=== PATIENT | male | born 1965 | race Caucasian/White ===

== ENCOUNTER 2016-09-09 12:02 | Inpatient (IN) | payer BC, OTHER ==
--- NOTE | 2016-09-09 12:30 | HP ---
COWS - Scale Resting Pulse: 1= [place] 81-100 Sweatin= Chills/Flushing Restless Observation: 1= Difficult to Sit Still Pupil Size: 0= Normal to Room Light Bone or Joint Aches: 1= Mild Discomfort Runny Nose/ Eye Tearin= Runny Nose/Eyes GI Upset > 30mins: 1= Stomach Cramp Tremor Observation: 1= Tremor [place], Not Seen Yawning Observation: 1= 1-2x During Session Anxiety or Irritability: 1=Feels Anxious/Irritable Goose Flesh Skin: 0=Smooth Skin COWS Score: 10 CIWA Score - CIWA Score Nausea/Vomitin-Mild Nausea/No Vomiting Muscle Tremors: 3 Anxiety: 4-Mod. Anxious/Guarded Agitation: 1-Slight > Activity Paroxysmal Sweats: 1-Minimal Palms Moist Orientation: 1-Uncertain about Date Tacttile Disturbances: 1-Very Mild Itch/Numbness Auditory Disturbances: 1-Very Mild Visual Disturbances: 1-Very Mild Sensitivity Headache: 1-Very Mild CIWA-Ar Total Score: 15 Admission ROS S - HPI Chief Complaint: I want to stop using, I was doing good, then I relapsed. Allergies/Adverse Reactions: Allergies Allergy/AdvReac Type Severity Reaction Status Date / Time No Known Allergies Allergy Verified 09/09/16 12:24 History of Present Illness: 50 yo gentleman her for detox from heroin and alcohol - no seizures. Past history of methadone but stopped as scheduling problems with work - think he might do suboxone. Exam Limitations: Clinical Condition - Ebola screening Have you traveled outside of the country in the last 21 days: No Have you had contact with anyone from an Ebola affected area: No Do you have a fever: No - Review of Systems Constitutional: Loss of Appetite, Changes in sleep EENT: reports: No Symptoms Reported Respiratory: reports: No Symptoms reported Cardiac: reports: No Symptoms Reported GI: reports: Poor Appetite, Indigestion : reports: Frequency Musculoskeletal: reports: Back Pain, Muscle Pain Integumentary: reports: No Symptoms Reported Neuro: reports: Headache Endocrine: reports: No Symptoms Reported Hematology: reports: No Symptoms Reported Psychiatric: reports: Judgement Intact, Mood/Affect Appropiate, Orientated x3, Anxious Other Systems: Reviewed and Negative Patient History - Patient Medical History Hx Anemia: No Hx Asthma: No Hx Chronic Obstructive Pulmonary Disease (COPD): No Hx Cancer: No Hx Cardiac Disorders: No Hx Congestive Heart Failure: No Hx Hypertension: No Hx Hypercholesterolemia: No Hx Pacemaker: No HX Cerebrovascular Accident: No Hx Seizures: No Hx Dementia: No Hx Diabetes: No Hx Gastrointestinal Disorders: No Hx Liver Disease: No Hx Genitourinary Disorders: No Hx Sexually Transmitted Disorders: No Hx Renal Disease (ESRD): No Hx Thyroid Disease: No Hx Human Immunodeficiency Virus (HIV): No Hx Hepatitis C: No Hx Depression: No Hx Suicide Attempt: No Hx Bipolar Disorder: No Hx Schizophrenia: No Other Medical History: PPD+ - treated with INH - Patient Surgical History Hx Appendectomy: Yes (age 18) - PPD History Previous Implant?: Yes Documented Results: Positive w/o proof Implanted On Prior [facility] Admission?: No PPD to be Administered?: No - Reproductive History Patient is a Female of Child Bearing Age (11 -55 yrs old): No (male) - Smoking Cessation Smoking history: Former smoker Have you smoked in the past 12 months: No Initiated information on smoking cessation: No - Substance & Tx. History Hx Alcohol Use: Yes Hx Substance Use: Yes Substance Use Type: Alcohol, Heroin Hx Substance Use Treatment: Yes (detox, hx MMTP 2009 (60mg),) - Substances Abused Alcohol Route: Oral Frequency: 3-6 times per week Amount used: six twelve oz beers Age of first use: 19 Date of Last Use: 09/07/16 Heroin Route: Inhalation Frequency: Daily Amount used: 2 bundles Age of first use: 20 Date of Last Use: 09/09/16 Family Disease History - Family Disease History Family Disease History: [place]: Mother (, hx ethoh), Other: Father (unknown) , Mother, Brother (had two - - OD), Sister (one sister - - brain hemorrhage - drugs), Son (age 18 - no problems), Daughter (age 19 - no problems) Admission Physical Exam BHS - Physical General Appearance: Yes: Nourished, Appropriately Dressed, Moderate Distress, Anxious HEENTM: Yes: Normal ENT Inspection, Normocephalic, Normal Voice, Pharynx Normal , Tm's normal, Nasal Congestion, Rhinorrhea Respiratory: Yes: Normal Breath Sounds, No Respiratory Distress Neck: Yes: No masses,lesions,Nodules Breast: Yes: Breast Exam Deferred Cardiology: Yes: Regular Rhythm, Regular Rate Abdominal: Yes: Soft Genitourinary: Yes: Frequency Back: Yes: Normal Inspection Musculoskeletal: Yes: full range of Motion, Gait Steady Extremities: Yes: Normal Inspection, Normal Range of Motion Neurological: Yes: Fully Oriented, Alert, Normal Mood/Affect, Normal Response Integumentary: Yes: Normal Color, Warm Lymphatic: Yes: Within Normal Limits - Diagnostic (1) Alcohol dependence with uncomplicated withdrawal Current Visit: Yes Status: Chronic (2) Uncomplicated opioid dependence Current Visit: Yes Status: Chronic (3) PPD positive, treated Current Visit: Yes Status: Chronic Cleared for Admission [facility] - Detox or Rehab [facility] Level of Care: Medically Managed Detox Regimen/Protocol: Methadone/Librium
[2016-09-09 12:35] VITALS: BMI 29.4
[2016-09-09] MEDS ORDERED: MENTHOL/PHENOL 1 EACH UD MM PRN (12:56)
[2016-09-09] MEDS ORDERED: LOPERAMIDE HCL 2 MG CAPSULE PO PRN (12:56)
[2016-09-09] MEDS ORDERED: guaiFENesin/D-METHORPHAN HB 10 ML UNIT-DOSE CUPS PO PRN (12:56)
[2016-09-09] MEDS ORDERED: ACETAMINOPHEN 325 MG TABLET (FP) PO PRN (12:56)
[2016-09-09] MEDS ORDERED: diphenhydrAMINE HCL 50 MG CAPSULE PO PRN (12:56)
[2016-09-09] MEDS ORDERED: IBUPROFEN 400 MG TABLET (FP) PO PRN (12:56)
[2016-09-09] MEDS ORDERED: MAGNESIUM HYDROX 2400MG/30ML ORAL SUSPENSION 30 ML CUP PO PRN (12:56)
[2016-09-09] MEDS ORDERED: P-EPHED 60MG/TRIPROLIDI 2.5MG TABLET PO PRN (12:56)
[2016-09-09] MEDS ORDERED: chlordiazePOXIDE HCL 25 MG CAPSULE PO PRN (12:56)
[2016-09-09] MEDS ORDERED: MAG HYDROX/AL HYDROX/SIMETH 30 ML UNIT-DOSE CUP PO PRN (12:56)
[2016-09-09] MEDS ORDERED: MAGNESIUM CITRATE 300 ML BOTTLE PO PRN (12:56)
[2016-09-09] MEDS ORDERED: chlordiazePOXIDE HCL 25 MG CAPSULE PO ONE (14:00)
[2016-09-09] MEDS ORDERED: METHADONE HCL 10 MG TABLET (FOR DETOX USE ONLY) PO ONE ×2 (14:00→23:00)
[2016-09-09 17:49] LABS: URINE APPEARANCE CLEAR; URINE BLOOD NEGATIVE (NEGATIVE); URINE COLOR AMBER; URINE GLUCOSE (UA) NEGATIVE (NEGATIVE); URINE KETONE TRACE (NEGATIVE); URINE LEUK ESTERASE NEGATIVE (NEGATIVE); URINE NITRITE NEGATIVE (NEGATIVE); URINE UROBILINOGEN 2.0 E.U/dl E.U./dl (0.2-1.0)
[2016-09-09 17:50] LABS: URINE PROTEIN 2+ (NEGATIVE)
[2016-09-09 17:51] LABS: URINE BACTERIA RARE /hpf (NONE SEEN); URINE MUCUS MANY; URINE RBC 4 /hpf (0-3); URINE WBC 2 /hpf (3-5)
[2016-09-09] MEDS: chlordiazePOXIDE HCL 25 MG CAPSULE PO SCH ×2 (17:52→22:38)
[2016-09-09] MEDS: THIAMINE HCL 100 MG TABLET (FP) PO SCH (22:38)
[2016-09-10] MEDS: chlordiazePOXIDE HCL 25 MG CAPSULE PO SCH ×4 (05:31→22:29)
[2016-09-10] MEDS ORDERED: METHADONE HCL 10 MG TABLET (FOR DETOX USE ONLY) PO SCH (10:00)
[2016-09-10 10:16] LABS: MCH 29.8 pg (25.7-33.7); MCHC 32.6 g/dl (32.0-35.9); MEAN CELL VOLUME 91.5 fl (80-96); MEAN PLT VOLUME 7.1 fl (7.5-11.1); PLATELET COUNT 260 K/MM3 (134-434)
[2016-09-10 10:28] LABS: ALBUMIN 3.4 g/dl (3.4-5.0); ANION GAP 8 (8-16); CALCIUM 8.8 mg/dL (8.5-10.1); CO2 31 mmol/L (21-32); GLUCOSE,RANDOM 91 mg/dL (74-106)
[2016-09-10 10:33] LABS: ALK PHOS 111 U/L (45-117); BILIRUBIN,TOTAL 0.6 mg/dL (0.2-1.0); COCKROFT - GAULT 130.58; CREATININE 0.9 mg/dL (0.7-1.3); SGOT/AST 16 U/L (15-37); SGPT/ALT 22 U/L (12-78)
--- NOTE | 2016-09-10 10:48 | PN ---
[facility] CIWA - CIWA Score Nausea/Vomitin Muscle Tremors: 3 Anxiety: 3 Agitation: 2 Paroxysmal Sweats: 1-Minimal Palms Moist Orientation: 0-Oriented Tacttile Disturbances: 1-Very Mild Itch/Numbness Auditory Disturbances: 1-Very Mild Visual Disturbances: 1-Very Mild Sensitivity Headache: 2-Mild CIWA-Ar Total Score: 17 BHS COWS - Scale Resting Pulse: 0= [place] 80 or Below Sweatin= Chills/Flushing Restless Observation: 3= Extraneous Movement Pupil Size: 1= Pupils >than Normal Bone or Joint Aches: 2= Severe Diffuse Aches Runny Nose/ Eye Tearin= Runny Nose/Eyes GI Upset > 30mins: 2= Nausea/Diarrhea Tremor Observation of Outstretched Hands: 2= Slight Tremor Visible Yawning Observation: 1= 1-2x During Session Anxiety or Irritability: 2=Irritable/Anxious Goose Flesh Skin: 0=Smooth Skin COWS Score: 16 S Progress Note (SOAP) Subjective: ALERT,IRRITABLE,ANXIOUS,INTERRUPTED SLEEP,TREMOR,PAIN IN THE BODY,BACK Objective: 09/10/16 10:46 Vital Signs Temperature 98.1 F 09/10/16 09:52 Pulse Rate 90 09/10/16 09:52 Respiratory Rate 18 09/10/16 09:52 Blood Pressure 116/65 09/10/16 09:52 O2 Sat by Pulse Oximetry (%) EKG NSR,RARE VPC Vital Signs Temperature 98.1 F 09/10/16 09:52 Pulse Rate 90 09/10/16 09:52 Respiratory Rate 18 09/10/16 09:52 Blood Pressure 116/65 09/10/16 09:52 O2 Sat by Pulse Oximetry (%) Laboratory Last Values WBC 6.0 K/mm3 (4.0-10.0) 09/10/16 08:00 RBC 4.61 M/mm3 (4.00-5.60) 09/10/16 08:00 Hgb 13.7 GM/dL (11.7-16.9) 09/10/16 08:00 Hct 42.2 % (35.4-49) 09/10/16 08:00 MCV 91.5 fl (80-96) 09/10/16 08:00 MCHC 32.6 g/dl (32.0-35.9) 09/10/16 08:00 RDW 13.0 % (11.9-15.9) 09/10/16 08:00 Plt Count 260 K/MM3 (134-434) 09/10/16 08:00 MPV 7.1 fl (7.5-11.1) L 09/10/16 08:00 Sodium 140 mmol/L (136-145) 09/10/16 08:00 Potassium 3.8 mmol/L (3.5-5.1) 09/10/16 08:00 Chloride 101 mmol/L (98-107) 09/10/16 08:00 Carbon Dioxide 31 mmol/L (21-32) 09/10/16 08:00 Anion Gap 8 (8-16) 09/10/16 08:00 BUN 6 mg/dL (7-18) L 09/10/16 08:00 Random Glucose 91 mg/dL (74-106) 09/10/16 08:00 Calcium 8.8 mg/dL (8.5-10.1) 09/10/16 08:00 Albumin 3.4 g/dl (3.4-5.0) 09/10/16 08:00 Urine Color Randi 09/09/16 16:00 Urine Appearance Clear 09/09/16 16:00 Urine pH 6.0 (5.0-8.0) 09/09/16 16:00 Ur Specific [place] >= 1.030 (1.005-1.025) H 09/09/16 16:00 Urine Protein 2+ (NEGATIVE) H 09/09/16 16:00 Urine Glucose (UA) Negative (NEGATIVE) 09/09/16 16:00 Urine Ketones Trace (NEGATIVE) H 09/09/16 16:00 Urine Blood Negative (NEGATIVE) 09/09/16 16:00 Urine Nitrite Negative (NEGATIVE) 09/09/16 16:00 Urine Bilirubin 2.0 (NEGATIVE) 09/09/16 16:00 Urine Urobilinogen 2.0 e.u/dl E.U./dl (0.2-1.0) 09/09/16 16:00 Ur Leukocyte Esterase Negative (NEGATIVE) 09/09/16 16:00 Urine RBC 4 /hpf (0-3) 09/09/16 16:00 Urine WBC 2 /hpf (3-5) 09/09/16 16:00 Ur Epithelial Cells Rare /hpf (FEW) 09/09/16 16:00 Urine Bacteria Rare /hpf (NONE SEEN) 09/09/16 16:00 Urine Mucus Many 09/09/16 16:00 LABS PENDING Assessment: 09/10/16 10:47 WITHDRAWAL SYMPTOM Plan: CONTINUE DETOX
[2016-09-10] MEDS: PRENATAL VITAMINS W/ FOLIC ACID TABLET (FP) PO SCH (11:02)
--- NOTE | 2016-09-10 15:45 | EKG ---
Test Reason : Blood Pressure : / mmHG Vent. Rate : 069 BPM Atrial Rate : 069 BPM P-R Int : 148 ms QRS Dur : 102 ms QT Int : 406 ms P-R-T Axes : 061 053 040 degrees QTc Int : 435 ms SINUS RHYTHM WITH OCCASIONAL PREMATURE VENTRICULAR COMPLEXES OTHERWISE NORMAL ECG NO PREVIOUS ECGS AVAILABLE Confirmed by RYAN PAGAN, HEAVEN ([id number]) on 09/10/2016 3:44:55 PM Referred By: Confirmed By:HEAVEN DAVIS MD
[2016-09-10] MEDS: THIAMINE HCL 100 MG TABLET (FP) PO SCH (22:29)
[2016-09-11] MEDS: chlordiazePOXIDE HCL 25 MG CAPSULE PO SCH ×2 (05:24→10:51)
--- NOTE | 2016-09-11 10:06 | PN ---
[facility] CIWA - CIWA Score Nausea/Vomitin Muscle Tremors: 3 Anxiety: 3 Agitation: 2 Paroxysmal Sweats: 1-Minimal Palms Moist Orientation: 0-Oriented Tacttile Disturbances: 1-Very Mild Itch/Numbness Auditory Disturbances: 1-Very Mild Visual Disturbances: 1-Very Mild Sensitivity Headache: 2-Mild CIWA-Ar Total Score: 17 BHS COWS - Scale Resting Pulse: 1= [place] 81-100 Sweatin= Chills/Flushing Restless Observation: 3= Extraneous Movement Pupil Size: 1= Pupils >than Normal Bone or Joint Aches: 2= Severe Diffuse Aches Runny Nose/ Eye Tearin= Runny Nose/Eyes GI Upset > 30mins: 2= Nausea/Diarrhea Tremor Observation of Outstretched Hands: 2= Slight Tremor Visible Yawning Observation: 1= 1-2x During Session Anxiety or Irritability: 2=Irritable/Anxious Goose Flesh Skin: 0=Smooth Skin COWS Score: 17 [facility] Progress Note (SOAP) Subjective: ALERT,IRRITABLE,ANXIOUS,INTERRUPTED SLEEP,TREMOR,PAIN IN THE BODY AND BACK Objective: 09/11/16 10:05 Vital Signs Temperature 98.1 F 09/11/16 09:57 Pulse Rate 93 H 09/11/16 09:57 Respiratory Rate 20 09/11/16 09:57 Blood Pressure 119/68 09/11/16 09:57 O2 Sat by Pulse Oximetry (%) EKG NSR OCCASIONAL VPC Assessment: 09/11/16 10:05 WITHDRAWAL SYMPTOM Plan: CONTINUE DETOX
[2016-09-11] MEDS: PRENATAL VITAMINS W/ FOLIC ACID TABLET (FP) PO SCH (10:51)
[2016-09-11] MEDS: METHADONE HCL 5 MG TABLET (FOR DETOX USE ONLY) PO SCH (10:51)
[2016-09-11] MEDS: cloNIDine HCL 0.1 MG TABLET PO SCH ×2 (10:52→22:42)
[2016-09-11] MEDS: chlordiazePOXIDE 5 MG CAPSULE PO SCH ×2 (17:19→22:43)
[2016-09-11] MEDS: hydrOXYzine PAMOATE 50 MG CAPSULE (FP) PO SCH (22:43)
[2016-09-11] MEDS: THIAMINE HCL 100 MG TABLET (FP) PO SCH (22:43)
[2016-09-12] MEDS: chlordiazePOXIDE 5 MG CAPSULE PO SCH ×2 (05:45→10:39)
--- NOTE | 2016-09-12 08:52 | PN ---
S Progress Note (SOAP) Subjective: ALERT,IRRITABLE,ANXIOUS,INTERRUPTED SLEEP,INSOMNIA,PAIN IN THE BODY AND BACK Objective: 09/12/16 08:49 Vital Signs Temperature 97.0 F L 09/12/16 06:00 Pulse Rate 74 09/12/16 06:00 Respiratory Rate 18 09/12/16 06:00 Blood Pressure 113/70 09/12/16 06:00 O2 Sat by Pulse Oximetry (%) Assessment: 09/12/16 08:50 WITHDRAWAL SYMPTOM Plan: CONTINUE DETOX,PSYCHIATRIC CONSULTATION FOR ANXIETY AND INSOMNIA
[2016-09-12] MEDS: CYCLOBENZAPRINE HCL 10 MG TABLET (FP) PO PRN ×2 (10:38→22:13)
[2016-09-12] MEDS: cloNIDine HCL 0.1 MG TABLET PO SCH ×2 (10:39→22:13)
[2016-09-12] MEDS: PRENATAL VITAMINS W/ FOLIC ACID TABLET (FP) PO SCH (10:39)
[2016-09-12] MEDS: METHADONE HCL 5 MG TABLET (FOR DETOX USE ONLY) PO SCH (10:39)
--- NOTE | 2016-09-12 16:29 | CONSULT ---
[facility] Psychiatric Consult - Data Date of interview: 09/12/16 Admission source: [facility] Identifying data: First admission to [facility] for this 50 y/o male seeking detox treatment for alcohol and heroin dependence.Patient is single,a father of two,domiciled and currently employed. Substance Abuse History: - Smoking Cessation. Smoking history: Former smoker. Have you smoked in the past 12 months: No. Initiated information on smoking cessation: No. - Substance & Tx. History. Hx Alcohol Use: Yes. Hx Substance Use: Yes. Substance Use Type: Alcohol, Heroin. Hx Substance Use Treatment: Yes (detox, hx MMTP 2009 (60mg),). - Substances Abused. Alcohol. Route: Oral. Frequency: 3-6 times per week. Amount used: six twelve oz beers. Age of first use: 19. Date of Last Use: 09/07/16. Heroin. Route: Inhalation. Frequency: Daily. Amount used: 2 bundles. Age of first use: 20. Date of Last Use: 09/09/16. Confirmed by patient. Medical History: Patient endorses good general health. Psychiatric History: Patient denies. Physical/Sexual Abuse/Trauma History: Patient denies. Additional Comment: No Tox screen available. Mental Status Exam - Mental Status Exam Alert and Oriented to: Time, Place, Person Cognitive Function: Good Patient Appearance: Well Groomed Mood: Hopeful, Euthymic Affect: Appropriate, Normal Range Patient Behavior: Fatigued, Cooperative Speech Pattern: Clear, Appropriate Voice Loudness: Normal Thought Process: Intact, Goal Oriented Thought Disorder: Not Present Hallucinations: Denies Suicidal Ideation: Denies Homicidal Ideation: Denies Insight/Judgement: Fair Sleep: Poorly, Difficulty falling asleep Appetite: Good Muscle strength/Tone: Normal Gait/Station: Normal Psychiatric Findings - Problem List ([place] 1, 2,3) (1) Alcohol dependence with uncomplicated withdrawal Current Visit: Yes Status: Chronic (2) Uncomplicated opioid dependence Current Visit: Yes Status: Chronic (3) PPD positive, treated Current Visit: Yes Status: Chronic (4) Insomnia Current Visit: Yes Status: Acute - Initial Treatment Plan Initial Treatment Plan: Psychoeducation.Detoxification.Ambien 10 mg po hs prn.Patient is made aware of the potential for parasomnias.He is in agreement with this careplan.Observation.
[2016-09-12] MEDS: chlordiazePOXIDE HCL 10 MG CAPSULE PO SCH ×2 (17:22→22:13)
[2016-09-12] MEDS: hydrOXYzine PAMOATE 50 MG CAPSULE (FP) PO SCH (22:13)
[2016-09-12] MEDS: ZOLPIDEM TARTRATE 10 MG TABLET (PARK CARE ONLY) PO PRN (22:13)
[2016-09-12] MEDS: THIAMINE HCL 100 MG TABLET (FP) PO SCH (22:13)
[2016-09-13] MEDS: hydrOXYzine PAMOATE 50 MG CAPSULE (FP) PO PRN ×2 (01:02→10:54)
[2016-09-13] MEDS: chlordiazePOXIDE HCL 10 MG CAPSULE PO SCH ×2 (05:43→10:55)
[2016-09-13] MEDS ORDERED: PANTOPRAZOLE 40 MG TABLET (FP) PO ONE (08:42)
--- NOTE | 2016-09-13 08:46 | PN ---
S Progress Note (SOAP) Subjective: alert,interrupted sleep,tremor,pain in epigastrium,no vomiting Objective: 09/13/16 08:45 Vital Signs Temperature 97.3 F L 09/13/16 06:18 Pulse Rate 80 09/13/16 06:18 Respiratory Rate 16 09/13/16 06:18 Blood Pressure 102/71 09/13/16 06:18 O2 Sat by Pulse Oximetry (%) Assessment: 09/13/16 08:45 withdrawal symptom gastritis Plan: continue detox,protonix 40 mgs po daily
[2016-09-13] MEDS ORDERED: chlordiazePOXIDE 5 MG CAPSULE ONE (09:31)
[2016-09-13] MEDS ORDERED: METHADONE HCL 10 MG TABLET (FOR DETOX USE ONLY) PO SCH (10:00)
[2016-09-13] MEDS: PRENATAL VITAMINS W/ FOLIC ACID TABLET (FP) PO SCH (10:53)
[2016-09-13] MEDS: cloNIDine HCL 0.1 MG TABLET PO SCH ×2 (10:55→22:19)
[2016-09-13] MEDS: hydrOXYzine PAMOATE 50 MG CAPSULE (FP) PO SCH (22:19)
[2016-09-13] MEDS: CYCLOBENZAPRINE HCL 10 MG TABLET (FP) PO PRN (22:19)
[2016-09-13] MEDS: ZOLPIDEM TARTRATE 10 MG TABLET (PARK CARE ONLY) PO PRN (22:19)
[2016-09-13] MEDS: THIAMINE HCL 100 MG TABLET (FP) PO SCH (22:19)
[2016-09-14] MEDS ORDERED: METHADONE HCL 5 MG TABLET (FOR DETOX USE ONLY) PO SCH (06:00)
[2016-09-14 06:21] VITALS: BP 91/70; PULSE 91; TEMP 97.7
--- NOTE | 2016-09-14 08:35 | DS ---
[facility] Detox Discharge Summary Admission Date: 09/09/16 Discharge Date: 09/14/16 - History Present History: Opioid Dependence, Sedative Dependence Pertinent Past History: ANXIETY INSOMNIA - Physical Exam Results Vital Signs: Vital Signs Temperature 97.7 F 09/14/16 06:20 Pulse Rate 91 H 09/14/16 06:20 Respiratory Rate 18 09/14/16 06:20 Blood Pressure 91/70 09/14/16 06:20 O2 Sat by Pulse Oximetry (%) Pertinent Admission Physical Exam Findings: WITHDRAWAL SYMPTOM - Treatment Hospital Course: Detox Protocol Followed, Detoxed Safely, Responded well, Discharged Condition Good Patient has Accepted a Rehab Referral to: DECLINED - Medication Discharge Medications: Ambulatory Orders NK [No Known Home Medication] 09/09/16 - Diagnosis (1) Insomnia Current Visit: Yes Status: Acute (2) Alcohol dependence with uncomplicated withdrawal Current Visit: Yes Status: Chronic (3) Uncomplicated opioid dependence Current Visit: Yes Status: Chronic (4) Anxiety Current Visit: Yes Status: Acute - AMA Did Patient Leave Against Medical Advice: No
[2016-09-14] MEDS: cloNIDine HCL 0.1 MG TABLET PO SCH (09:51)
[2016-09-14] MEDS: PRENATAL VITAMINS W/ FOLIC ACID TABLET (FP) PO SCH (09:51)
[2016-09-14] MEDS ORDERED: PANTOPRAZOLE 40 MG TABLET (FP) PO SCH (10:00)
--- NOTE | 2016-09-14 10:39 | PN ---
S Progress Note (SOAP) Subjective: ALERT,NO COMPLAINT Objective: 09/14/16 10:38 Vital Signs Temperature 97.7 F 09/14/16 06:20 Pulse Rate 91 H 09/14/16 06:20 Respiratory Rate 18 09/14/16 06:20 Blood Pressure 91/70 09/14/16 06:20 O2 Sat by Pulse Oximetry (%) Assessment: 09/14/16 10:38 DETOX COMPLETED,NO WITHDRAWAL SYMPTOM Plan: DISCHARGE TODAY,FOLLOW UP WITH AFTER CARE PROGRAM ARRANGEMENT
== END 2016-09-14 10:06 | disposition home or self-care (01) | DRG 897 ==
LOC: YASAS 12:02 → Y6N 14:15
PROVIDERS: ADMIT Internal Medicine; ATTEND Internal Medicine
PROC: HZ2ZZZZ Detoxification Services for Substance Abuse Treatment (ICD-10-PCS; principal; 2016-09-09)
DX: F11.23 Opioid dependence with withdrawal (principal); F10.230 Alcohol dependence with withdrawal, uncomplicated; F41.9 Anxiety disorder, unspecified; G47.00 Insomnia, unspecified; R76.11 Nonspecific reaction to tuberculin skin test without active tuberculosis
CPT/HCPCS: 36415; 71020-TC; 80053; 81003; 81015; 85027; 86593; 93005; 93010